=== PATIENT | female | born 1965 | race Caucasian/White ===

== ENCOUNTER 2019-04-06 19:30 | Emergency (ER) | payer OTHER ==
[2019-04-06 19:41] VITALS: BP 133/96
[2019-04-06] MEDS ORDERED: Tetan/Diph/Pertus SYR(Tdap)* 0.5 ML SYR(BOOSTRIX) use SYR contains LATEX IM ONE (19:50)
[2019-04-06] MEDS ORDERED: Benzoin Compound STICK TOPICAL ONE (19:52)
--- NOTE | 2019-04-06 20:24 | UC ---
Hand/Wrist HPI - HPI Summary HPI Summary: 53 yo female s/p flap laceration to left index finger about 2 PM today unsure of last tetanus shot she has DM cleaned copious at home has sealed closed she is worried it will open up if she bends her finger - History Of Current Complaint Chief Complaint: UCLaceration Stated Complaint: FINGER INJURY Time Seen by Provider: 04/06/19 19:35 Hx Obtained From: Patient Hx Last Menstrual Period: 08/09/13 Onset/Duration: Sudden Onset Severity Initially: Moderate Severity Currently: Moderate Pain Intensity: 5 Pain Scale Used: 0-10 Numeric Character Of Pain: Burning Aggravating Factor(s): Movement Alleviating Factor(s): Rest, Compression Associated Signs And Symptoms: Positive: Negative Related History: Dominant Hand Right Hands: 1 - u shaped flap lac with apex distal. Viable /sealed unable to lift flap , neuro intact distally, good cap refill - Allergies/Home Medications Allergies/Adverse Reactions: Allergies Allergy/AdvReac Type Severity Reaction Status Date / Time Sulfa (Sulfonamide Allergy Itching Verified 04/06/19 19:47 Antibiotics) Home Medications: Home Medications Levothyroxine TAB* [Synthroid TAB*] 175 mcg PO DAILY 04/06/19 [History Confirmed 04/06/19] Liothyronine TAB* [Cytomel TAB*] 5 mcg PO BID 04/06/19 [History Confirmed ] Varenicline 0.5 mg Tab(Nf) [Chantix 0.5 MG TAB(NF)] 0.5 mg PO DAILY 04/06/19 [ History Confirmed 04/06/19] metFORMIN* [Glucophage 1000 MG TAB *] 1,000 mg PO BID 04/06/19 [History Confirmed 04/06/19] PMH/Surg Hx/FS Hx/Imm Hx Previously Healthy: Yes Endocrine History: Diabetes, Thyroid Disease Cardiovascular History: Hypertension - Surgical History Surgical History: Yes Surgery Procedure, Year, and Place: tonsils, adnoids, ear tubes, kidney stone, throat and tongue biopsy 08/19 - Family History Known Family History: Positive: Hypertension, Diabetes - Social History Alcohol Use: Rare Substance Use Type: Marijuana Substance Use Comment - Amount & Last Used: daily Smoking Status (MU): Former Smoker Type: Cigarettes Amount Used/How Often: quit 02/2013 - Immunization History Most Recent Tetanus Shot: unsure Review of Systems All Other Systems Reviewed And Are Negative: Yes Constitutional: Positive: Negative Skin: Positive: Other - lac Eyes: Positive: Negative ENT: Positive: Negative Respiratory: Positive: Negative Cardiovascular: Positive: Negative Gastrointestinal: Positive: Negative Genitourinary: Positive: Negative Motor: Positive: Negative Neurovascular: Positive: Negative Musculoskeletal: Positive: Negative Neurological: Positive: Negative Psychological: Positive: Negative Physical Exam Triage Information Reviewed: Yes Appearance: Well-Appearing, No Pain Distress, Well-Nourished Vital Signs: Initial Vital Signs Temp 99.1 F 04/06/19 19:35 Pulse 100 04/06/19 19:35 Resp 16 04/06/19 19:35 BP 133/96 04/06/19 19:35 Pulse Ox 96 04/06/19 19:35 Vital Signs Reviewed: Yes Eyes: Positive: Conjunctiva Clear ENT: Positive: Hearing grossly normal. Negative: Nasal congestion, Nasal drainage, Trismus, Muffled voice, Hoarse voice Neck: Positive: Supple, Nontender Respiratory: Positive: Lungs clear, Normal breath sounds, No respiratory distress, No accessory muscle use Cardiovascular: Positive: RRR, No Murmur Musculoskeletal: Positive: ROM Intact, No Edema Neurological: Positive: Alert Psychological Exam: Normal Skin Exam: Other - see image Procedures - Laceration/Wound Repair 1 Location: Other - LIF Description: Linear - flap Length, Depth and Shape: 3.3 cm long, depth 1mm, U shaped flap Betadine Prep?: Yes Irrigated w/ Saline (ccs): 200 Laceration/Wound Explored: clean Closure: SteriStrips Layer Closure?: No Sterile Dressing Applied?: No Hand/Wrist Course/Dx - Differential Dx/Diagnosis Provider Diagnosis: Laceration of left index finger Discharge ED - Sign-Out/Discharge Documenting (check all that apply): Patient Departure All imaging exams completed and their final reports reviewed: No Studies - Discharge Plan Condition: Stable Disposition: HOME Patient Education Materials: Steristrips (ED) Forms: *Work Release Referrals: Padmini Lopez MD [Primary Care Provider] - If Needed Additional Instructions: wear splint for at least 3 days recheck for concerns of infection - Billing Disposition and Condition Condition: STABLE Disposition: Home
== END 2019-04-06 20:26 | disposition home or self-care (01) ==
LOC: UCEAST 19:30
DX: S61.211A Laceration without foreign body of left index finger without damage to nail, initial encounter (principal); X58.XXXA Exposure to other specified factors, initial encounter; Y92.9 Unspecified place or not applicable; E11.9 Type 2 diabetes mellitus without complications; Z79.84 Long term (current) use of oral hypoglycemic drugs; E07.9 Disorder of thyroid, unspecified; I10 Essential (primary) hypertension; Z79.890 Hormone replacement therapy; Z88.2 Allergy status to sulfonamides; Z87.891 Personal history of nicotine dependence
CPT/HCPCS: 90715; 99213; G0463

== ENCOUNTER 2019-11-25 14:46 | Observation (INO) ==
[2019-11-25] MEDS ORDERED: NS 0.9% 1000 ml BAG 1,000 ML IV ONE ×2 (15:45→18:30)
[2019-11-25] MEDS ORDERED: Ondansetron 4 mg VIAL 2 MG/ML 2 ml VIAL IV ONE ×2 (15:59→18:30)
[2019-11-25 17:45] LABS: ABS Basophils 0.1 10^3/ul (0-0.2); ABS Eosinophils 0.2 10^3/ul (0-0.6); ABS Monocytes 0.7 10^3/ul (0-0.8); ABS Neutrophils 8.5 10^3/ul (1.5-7.7); Eosinophil % 1.3 %; Hematocrit 43 % (35-47); Hemoglobin 15.3 g/dL (12.0-16.0); Lymphocyte % 17.9 %; Mean Corpuscular HGB Conc 35 g/dL (31-36); Mean Corpuscular Hemoglobin 30 pg (27-31); Mean Corpuscular Volume 85 fL (80-97); Platelet Count 213 10^3/uL (150-450); Red Cell Distribution Width 14 % (10-15); White Blood Count 11.4 10^3/uL (3.5-10.8)
[2019-11-25 17:49] LABS: Albumin 4.7 g/dL (3.2-5.2); Calcium 9.7 mg/dL (8.6-10.3); Total Bilirubin 0.5 mg/dL (0.2-1.0)
[2019-11-25 17:55] LABS: Albumin/Globulin Ratio 1.6 (1-3); BUN/Creatinine Ratio 15.9 (8-20); C Reactive Protein 85.51 mg/L (<8.01); EGFR African American 108.1 (>60); EGFR Non-African American 89.3 (>60); Globulin 2.9 g/dL (2-4); Total Protein 7.6 g/dL (6.4-8.9)
[2019-11-25] MEDS ORDERED: Morphine 4 MG/ML VIAL (1 ml) IV ONE (18:30)
[2019-11-25] MEDS ORDERED: Iodixanol (CONTRAST) 320 MG/ML 100 ML SDV IV ONE (18:35)
[2019-11-25] MEDS ORDERED: Piperacillin/Tazobac ADVAN 3.375 GM in NS 0.9% 100 ml BAG 100 ML IVPB ONE (20:01)
[2019-11-25] MEDS: Prochlorperazine 5 mg/ml 2 ml VIAL (10 mg) IV PRN (20:30)
[2019-11-25] MEDS ORDERED: Ondansetron 4 mg VIAL 2 MG/ML 2 ml VIAL IV PRN (21:03)
[2019-11-25] MEDS ORDERED: Piperacillin/Tazobactam VIAL 3.375 GM in NS 0.9% 100 ml BAG 100 ML IVPB SCH (22:00)
[2019-11-25] MEDS: HYDROmorphone 1 MG/1 ML SYRINGE IV SLOW PU PRN (23:09)
[2019-11-26] MEDS: NS 0.9% 1000 ml BAG 1,000 ML IV SCH ×2 (00:20→10:29)
[2019-11-26] MEDS: HYDROmorphone 1 MG/1 ML SYRINGE IV SLOW PU PRN ×3 (02:23→08:15)
[2019-11-26] MEDS: Piperacillin/Tazobactam VIAL 3.375 GM in NS 0.9% 100 ml BAG 100 ML IVPB SCH ×2 (02:23→09:31)
[2019-11-26] MEDS: Prochlorperazine 5 mg/ml 2 ml VIAL (10 mg) IV PRN (08:13)
[2019-11-26] MEDS ORDERED: Propofol 10 MG/ML 20 ML BTL ONE (12:33)
[2019-11-26] MEDS ORDERED: fentaNYL 100 mcg/2 ml 50 MCG/ML VIAL ONE ×3 (12:33→15:10)
[2019-11-26] MEDS ORDERED: Ondansetron 4 mg VIAL 2 MG/ML 2 ml VIAL ONE (12:33)
[2019-11-26] MEDS ORDERED: Midazolam 2 mg/2 ml VIAL 1 mg/ml 2 ml VIAL (2 mg) ONE (12:33)
[2019-11-26] MEDS ORDERED: Succinylcholine 200 mg VIAL 20 mg/ml 10 ml VIAL (200 mg) ONE (12:33)
[2019-11-26] MEDS ORDERED: Rocuronium 50 mg VIAL 10 mg/ml 5 ml VIAL (50 mg) ONE (12:33)
[2019-11-26] MEDS ORDERED: Lidocaine 2% PF 5 ML VIAL ONE (12:33)
[2019-11-26] MEDS ORDERED: DiMENhydriNATE IV 50 mg/ml 1 ml VIAL IV PUSH PRN (14:29)
[2019-11-26] MEDS ORDERED: Naloxone 0.4 mg VIAL 0.4 mg/ml 1 ml VIAL IV PRN (14:29)
[2019-11-26] MEDS ORDERED: fentaNYL 100 mcg/2 ml 50 MCG/ML VIAL IV PRN (14:29)
[2019-11-26] MEDS ORDERED: HYDROmorphone 1 MG/1 ML SYRINGE IV PRN (14:29)
[2019-11-26] MEDS ORDERED: Ondansetron 4 mg VIAL 2 MG/ML 2 ml VIAL IV PRN (14:29)
[2019-11-26] MEDS ORDERED: Sugammadex 500 MG/5 ML 5 ml VIAL IV PUSH ONE (14:38)
[2019-11-26 16:14] VITALS: BP 144/87
== END 2019-11-26 16:15 | disposition home or self-care (01) ==
LOC: ED 14:46 → SSU 14:46
PROVIDERS: ADMIT Surgery Surgical Critical Care; ATTEND Surgery